=== PATIENT | female | born 1980 | race Two or more races ===

== ENCOUNTER 2023-06-27 08:08 | Outpatient (CLI) | payer OTHER | END 2023-06-27 08:17 | disposition home or self-care (01) | LOC: NUCLEAR 08:08 | DX: R55 Syncope and collapse (principal); R00.2 Palpitations ==

== ENCOUNTER → 2025-07-26 07:42 | Outpatient (CLI) | payer OTHER ==
[2025-07-26 10:23] LABS: URINE APPEARANCE Clear; URINE BILIRRUBIN Negative (NEGATIVE); URINE BLOOD Negative; URINE COLOR Yellow; URINE GLUCOSE Negative (NEGATIVE); URINE KETONE Negative (NEGATIVE); URINE LEUKOCYTE Trace; URINE NITRATE Negative; URINE PROTEIN Negative (NEGATIVE); URINE UROBILINOGEN 0.2 E.U./dl
[2025-07-26 10:23] LABS: BASO % 0.6 % (0.1-1.2); EOS # 0.49 (0.04-0.54); EOS % 5.4 % (0.7-7.0); LYMPH # 2.65 (1.18-3.74); LYMPH % 29.3 % (19.3-53.1); MEAN PLATELET VOLUME 11.40 fl (9.4-12.4); MONO # 0.47 (0.24-0.82); MONO % 5.2 % (4.7-12.5); NEUT # 5.34 (1.56-6.13); NEUT % 59.2 % (34.0-71.1); RED CELL DISTRIBUTION WIDTH 13.2 % (11.6-14.4)
[2025-07-26 10:27] LABS: URINE BACTERIA 261.5 uL (0.0-1933); URINE EPITHELIAL CELLS 12.1 uL (0.0-38.8); URINE RBC 8.6 uL (0.0-20.8); URINE WBC 9.2 uL (0.0-23.2)
[2025-07-26 10:48] LABS: ALT/SGPT 18.0 U/L (12-78); AST/SGOT 9.0 U/L (15-37); BILIRUBIN TOTAL 0.34 mg/dL (0.3-1.2); BUN CREA RATIO 22.0 (7.0-25.0); CHOL HDL RATIO 3.9 (0-5.0); CREATININE SERUM 0.69 mg/dL (0.55-1.02); GFR 92.0; GLOBULINA 4.0 G/DL (2.4-3.5); GLUCOSE FASTING 78.0 mg/dL (65-100); HDL 56.0 mg/dl (40-60); LDL 138.0 mg/dl (0-130); OSMOLALITY SERUM 283.0 MOSM/KG (275-295); TSH 1.17 uIU/mL (0.358-3.74); VLDL 23.0 (0-39)
[2025-07-26 11:05] LABS: URINE CAST 0.00 uL (0.0-1.40)
== END | disposition home or self-care (01) ==
LOC: LAB 07:42
DX: D64.9 Anemia, unspecified (principal); N39.0 Urinary tract infection, site not specified; E11.9 Type 2 diabetes mellitus without complications; E78.5 Hyperlipidemia, unspecified; E03.8 Other specified hypothyroidism; E55.9 Vitamin D deficiency, unspecified; R06.02 Shortness of breath